=== PATIENT | female | born 1965 | race African-American/Black ===

== ENCOUNTER 2016-09-22 05:17 | Day surgery (SDC) | payer BC, OTHER ==
[2016-09-05 12:28] LABS: HEMOGLOBIN 10.6 g/dL (12.0-15.5); HGB HCT DIFFERENCE -2.2; MEAN CORPUSCULAR HEMOGLOBIN 25.4 pg (27.0-33.4); MEAN CORPUSCULAR HGB CONC 31.3 g/dL (32.0-36.0); MEAN CORPUSCULAR VOLUME 81 fl (80-97); RED BLOOD COUNT 4.18 10^6/uL (3.72-5.28); RED CELL DISTRIBUTION WIDTH 16.5 % (11.5-14.0); WHITE BLOOD COUNT 5.6 10^3/uL (4.0-10.5)
[2016-09-05 12:43] LABS: APPEARANCE,URINE SLIGHTLY-CLOUDY; BILIRUBIN,URINE NEGATIVE (NEGATIVE); GLUCOSE, URINE NEGATIVE (NEGATIVE); KETONES,URINE NEGATIVE (NEGATIVE); LEUKOCYTE ESTERASE,URINE NEGATIVE (NEGATIVE); NITRITE,URINE NEGATIVE (NEGATIVE); PROTEIN,URINE NEGATIVE (NEGATIVE); URINE SPECIFIC GRAVITY 1.024; UROBILINOGEN,URINE NEGATIVE mg/dL (<2.0)
[2016-09-05 12:47] LABS: ANION GAP 11 (5-19); BLOOD UREA NITROGEN 16 mg/dL (7-20); CARBON DIOXIDE 26 mmol/L (22-30); CHLORIDE 105 mmol/L (98-107); GLUCOSE 79 mg/dL (75-110); POTASSIUM 4.5 mmol/L (3.6-5.0); SODIUM 142.3 mmol/L (137-145)
--- NOTE | 2016-09-05 20:06 | EKG REPORT ---
SEVERITY:- NORMAL ECG - SINUS RHYTHM : Confirmed by: Lucio Garcia 05-Sep-2016 20:05:21
[2016-09-20 13:51] LABS: HEMATOCRIT 33.3 % (36.0-47.0); HEMOGLOBIN 10.7 g/dL (12.0-15.5); HGB HCT DIFFERENCE -1.2; MEAN CORPUSCULAR HEMOGLOBIN 25.8 pg (27.0-33.4); MEAN CORPUSCULAR HGB CONC 32.1 g/dL (32.0-36.0); MEAN CORPUSCULAR VOLUME 80 fl (80-97); RED BLOOD COUNT 4.15 10^6/uL (3.72-5.28); RED CELL DISTRIBUTION WIDTH 17.8 % (11.5-14.0); WHITE BLOOD COUNT 5.1 10^3/uL (4.0-10.5)
[2016-09-20 14:19] LABS: ANION GAP 11 (5-19); BLOOD UREA NITROGEN 15 mg/dL (7-20); CALCIUM 9.7 mg/dL (8.4-10.2); CARBON DIOXIDE 24 mmol/L (22-30); CHLORIDE 106 mmol/L (98-107); GLUCOSE 85 mg/dL (75-110); POTASSIUM 4.4 mmol/L (3.6-5.0); SODIUM 140.9 mmol/L (137-145)
[~2016-09-22 05:17] MED LIST: CEFAZOLIN 1 GM/D5W RTU 1 GM/50 ML RTUPB IV PRN; CEFAZOLIN SODIUM 1 GM in DEXTROSE 5%-WATER 50 ML IV PRN; LACTATED RINGERS 1000 ML IV PRN; LIDOCAINE 0.5% INJ-PF (5 MG/ML) 50 ML SDV SUBCUT PRN
[2016-09-22] MEDS ORDERED: FENTANYL CITRATE INJ/PF 250 MCG/5 ML AMPULE ONE (07:06)
[2016-09-22] MEDS ORDERED: EPHEDRINE SULFATE INJ 50 MG/1 ML AMPULE ONE (07:07)
[2016-09-22] MEDS ORDERED: MIDAZOLAM 2 MG/2 ML INJ ONE (07:07)
[2016-09-22] MEDS ORDERED: ONDANSETRON HCL INJ/PF 4 MG/2 ML SDV ONE (07:07)
[2016-09-22] MEDS ORDERED: HYDROMORPHONE HCL INJ/PF 2 MG/ML AMPULE ONE (07:07)
[2016-09-22] MEDS ORDERED: DEXAMETHASONE SOD PHOSPHATE INJ 4 MG/1 ML VIAL ONE (07:07)
[2016-09-22] MEDS ORDERED: PROPOFOL INJ 200 MG/20 ML VIAL IV ONE (07:07)
[2016-09-22] MEDS ORDERED: DIPHENHYDRAMINE HCL 50 MG/ML VIAL IV PRN (07:40)
[2016-09-22] MEDS ORDERED: MEPERIDINE HCL/PF INJ 25 MG/1 ML DISP.SYRIN IV PRN (07:40)
[2016-09-22] MEDS ORDERED: FENTANYL CITRATE INJ/PF 100 MCG/2 ML AMPUL IV PRN ×3 (07:40)
[2016-09-22] MEDS ORDERED: PROMETHAZINE HCL INJ 25 MG/1 ML VIAL IV PRN (07:40)
[2016-09-22] MEDS ORDERED: OXYCODONE-ACETAMINOPHEN 5-325 MG TABLET PO PRN ×2 (08:58→11:00)
[2016-09-22] MEDS ORDERED: MORPHINE SULFATE 10 MG/ML INJ INJ PRN (08:59)
[2016-09-22] MEDS ORDERED: MORPHINE SULFATE 10 MG/ML INJ IM PRN (08:59)
[2016-09-22] MEDS ORDERED: PROMETHAZINE HCL INJ 25 MG/1 ML VIAL IM PRN ×2 (09:00→11:00)
--- NOTE | 2016-09-22 09:03 | OPERATIVE REPORT E ---
Operative Report NAME: JASBIR GUTIÉRREZ : 1965 AGE: 51Y DATE OF SURGERY: 09/22/2016 ROOM: PREOPERATIVE DIAGNOSES: 1. Dysmenorrhea. 2. Menorrhagia. 3. Uterine leiomyoma. 5. Adenomyosis. POSTOPERATIVE DIAGNOSES: 1. Dysmenorrhea. 2. Menorrhagia. 3. Uterine leiomyoma. 5. Adenomyosis. PROCEDURE: Total vaginal hysterectomy. COMPLICATIONS: None. SURGEON: KENDALL THOMAS M.D. ESTIMATED BLOOD LOSS: Qbg-qkwubrk-jflke mL. INDICATIONS FOR PROCEDURE: Patient had symptomatic anemia, iron infusions, painful periods, and clotting despite outpatient treatment with hormones and a Novasure ablation approximately a year to a year and a half ago. Usual risks of bleeding, infection, anesthesia, and damage to organs and tissues have been discussed with the patient and understood. PROCEDURE: Patient taken to the operating room and placed in modified lithotomy position after adequate anesthesia ascertained, and prepped and draped in the usual manner for a vaginal hysterectomy. Exam under anesthesia was performed. A surgical timeout was performed. Bladder had been drained under sterile technique. Antibiotics had been given. Via a posterior culdotomy incision, the posterior cul-de-sac was entered without difficulty. Uterosacral ligaments were crossclamped, cut, suture ligated, and held. Cervix was circumscribed and bladder was advanced sequentially throughout this aspect of the procedure and included a LigaSure advanced cauterization and cutting all the way up to the upper pedicles bilaterally. The upper pedicles were crossclamped, cut, suture ligated, cauterized, and held as well. The tubes and ovaries were identified at this point in the procedure. The uterus and cervix were handed off the operative field and noted to be normal. Ovaries were noted to be normal. The pedicles were examined and noted to be dry. Stephens culdoplasty stitches were placed and held and tied at the completion of the procedure. The vagina was closed in an anteroposterior fashion with good hemostasis noted at the completion of the procedure. Copious irrigation ensued. The vagina was noted to be dry. Good support was noted. No enterocele formation was noted at the closure of the vagina. All sponge, needle, and instrument counts were correct. Patient awakened and taken to recovery room in stable condition. DICTATING PHYSICIAN: KENDALL THOMAS M.D. [id number] PHY#: [id number] ID: [id number] JOB#: [id number] ACCT: [id number] cc:KENDALL THOMAS M.D. >
[2016-09-22] MEDS ORDERED: ACETAMINOPHEN 100 ML IV ONE (09:21)
[2016-09-22] MEDS ORDERED: IBUPROFEN 800 MG TABLET PO SCH (10:00)
[2016-09-22] MEDS ORDERED: RINGERS SOLUTION,LACTATED 500 ML IV ONE (10:00)
[2016-09-22] MEDS: MORPHINE SULFATE 10 MG/ML INJ INJ PRN ×2 (10:14→12:53)
[2016-09-22] MEDS ORDERED: MORPHINE INJ 4 MG DOSE (EDIT ROUTE) INJ PRN (11:00)
[2016-09-22] MEDS ORDERED: MORPHINE INJ 8 MG DOSE IM PRN (11:00)
[2016-09-22] MEDS ORDERED: MORPHINE INJ 6 MG DOSE (EDIT ROUTE) INJ PRN (11:00)
[2016-09-22] MEDS ORDERED: NEOSTIGMINE METHYLSULFATE 10 MG/10 ML VIAL ONE (12:28)
[2016-09-22] MEDS ORDERED: GLYCOPYRROLATE INJ 0.4 MG/2 ML VIAL ONE (12:28)
[2016-09-22] MEDS: IBUPROFEN 800 MG TABLET PO SCH ×2 (14:33→21:46)
[2016-09-22] MEDS ORDERED: INFLUENZA ADLT QUAD (36MOS+) 2016-17 VAC 0.5 ML SYR IM PRN (18:42)
[2016-09-23 06:03] LABS: HEMATOCRIT 31.2 % (36.0-47.0); HEMOGLOBIN 10.1 g/dL (12.0-15.5); HGB HCT DIFFERENCE -0.9; MEAN CORPUSCULAR HGB CONC 32.2 g/dL (32.0-36.0); MEAN CORPUSCULAR VOLUME 81 fl (80-97); RED BLOOD COUNT 3.87 10^6/uL (3.72-5.28); RED CELL DISTRIBUTION WIDTH 17.6 % (11.5-14.0); WHITE BLOOD COUNT 10.2 10^3/uL (4.0-10.5)
[2016-09-23] MEDS: IBUPROFEN 800 MG TABLET PO SCH (06:19)
[2016-09-23 08:17] VITALS: BP 121/63
--- NOTE | 2016-09-23 09:38 | DISCHARGE SUMMARY E ---
Discharge Summary NAME: JASBIR GUTIÉRREZ : 1965 AGE: 51Y ADMITTED: 09/22/2016 DISCHARGED: 09/23/2016 HOSPITAL COURSE: This is a 51-year-old female admitted 09/22/2016 for definitive treatment for symptomatic menorrhagia and anemia. The patient received outpatient iron infusions to get hemoglobin up to adequate operative levels. She was also given Provera for management. The usual risks of bleeding, infection, anesthesia, and damage to organs and tissues were discussed and the patient understood. The patient was admitted 09/22/2016 as an outpatient extended for a total vaginal hysterectomy, which was performed uneventfully. Estimated blood loss approximately 150 mL. Normal tubes and ovaries were noted at the time of procedure. Postoperatively, the patient did well, ambulatory, regular diet, no evidence of DVT, discharged hospital day one doing well. Pathology pending at time of dictation. FINAL DIAGNOSIS: Menorrhagia. PROCEDURE: Total vaginal hysterectomy. DICTATING PHYSICIAN: KENDALL THOMAS M.D. [id number] PHY#: [id number] ID: [id number] JOB#: [id number] ACCT: [id number] cc:KENDALL THOMAS M.D. > MTDD
== END 2016-09-23 09:00 | disposition home or self-care (01) ==
LOC: OROUT 05:17 → 2N 09:46 → OROUT 09-23 09:00
PROVIDERS: ATTEND Specialist
PROC: 0UTC7ZZ Resection of Cervix, Via Natural or Artificial Opening (ICD-10-PCS; 2016-09-22)
PROC: 0UT97ZZ Resection of Uterus, Via Natural or Artificial Opening (ICD-10-PCS; principal; 2016-09-22 07:15)
DX: N94.4 Primary dysmenorrhea (principal); N92.0 Excessive and frequent menstruation with regular cycle; D25.9 Leiomyoma of uterus, unspecified; N87.0 Mild cervical dysplasia; N80.0 Endometriosis of uterus; Z23 Encounter for immunization; E05.90 Thyrotoxicosis, unspecified without thyrotoxic crisis or storm; I10 Essential (primary) hypertension; Z79.899 Other long term (current) drug therapy
CPT/HCPCS: 93005; 86900 ×2; 86901 ×2; 36415 ×3; 86850 ×2; 85027 ×3; 81025; 80048 ×2; 81001; 88307 ×2; 71020; 90686; 94799; 93010; 58260; J2250; J0690 ×2; J1100; J3010; J2270; J1170; J2550; J2405; J7120; J2704; J0131; 944; J3490

== ENCOUNTER → 2017-10-16 | Outpatient (CLI) | payer BC, OTHER ==
--- NOTE | 2017-10-16 09:06 | WOMENS IMAGING REPORT ---
EXAM DESCRIPTION: 3D SCREENING MAMMO BILAT COMPLETED DATE/TIME: 10/16/2017 8:44 am REASON FOR STUDY: SCREENING MAMMO Z12.31 ENCNTR SCREEN MAMMOGRAM FOR MALIGNANT NEOPLASM OF JAYNE COMPARISON: 2015 TECHNIQUE: Standard craniocaudal and mediolateral oblique views of each breast recorded using digita l acquisition and breast tomosynthesis. LIMITATIONS: None. FINDINGS: RIGHT BREAST MASSES: No suspicious masses. CALCIFICATIONS: There are very faint calcifications in the deep right breast 6 o'clock position about 8 cm from the nipple. These require further investigation with compression magnification views in t he CC and 90 mediolateral view, and a right breast 90 mediolateral view ARCHITECTURAL DISTORTION: None. DEVELOPING DENSITY: None. ASYMMETRY: None noted. OTHER: No other significant findings. LEFT BREAST MASSES: No suspicious masses. CALCIFICATIONS: No new or suspicious calcifications. ARCHITECTURAL DISTORTION: None. DEVELOPING DENSITY: None. ASYMMETRY: None noted. OTHER: No other significant findings. Read with the assistance of CAD. .[facility] - R2 Cenova Version 1.3 .[facility] Imaging - R2 Cenova Version 1.3 .[facility] Imaging - R2 Cenova Version 2.4 .[facility] - R2 Cenova Version 2.4 .[facility] - R2 [employer] Machine Operator Helper Version 9.2 IMPRESSION: No mammographic or tomosynthesis evidence for malignancy left breast. Faint calcifications right breast deep 6 o'clock position for which diagnostic magnification mammogra ms are recommended BREAST DENSITY: b. There are scattered areas of fibroglandular density. BIRAD: 0 Incomplete: Needs Additional Imaging Evaluation and/or prior Mammograms for Comparison. RECOMMENDATION: RECOMMENDED FOLLOW-UP: Additional mammograms right breast The patient will be contacted for additional imaging. COMMENT: The patient has been notified of the results by letter per SA requirements. Additional no tification policies are in place for contacting patient with suspicious or incomplete findings. Quality ID #225: The [employer] recommends an annual screening mammogram for women aged 40 years or over. This facility utilizes a reminder system to ensure that all patients receive reminder letters, and/or direct phone calls for appointments. This includes reminders for routine scr eening mammograms, diagnostic mammograms, or other Breast Imaging Interventions when appropriate. Th is patient will be placed in the appropriate reminder system. The [employer] (ACR) has developed recommendations for screening MRI of the breast s in certain patient populations, to be used in conjunction with mammography. Breast MRI surveillanc e may be appropriate for women with more than 20% lifetime risk of developing breast cancer as deter mined by genetic testing, significant family history of the disease, or history of mantle radiation f or Hodgkins Disease. ACR Practice Guidelines 2008. DBT Technology DBT is a type of tomographic mammography. With conventional mammography, overlapping breast tissue ma y make lesions difficult to detect, even with good compression. DBT uses an x-ray tube that rotates a round the breast, taking images at different angles. These images are then combined to create thin sl ices of the breast that the radiologist can view as a 3D reconstruction. The TruQu unit can perform full-field digital mammograms (2D imaging); or DBT (3D imaging); or both, in a combination mode that quickly performs both the mammogram and the tomosynthesis scan while the breast is still compressed. PQRS 6045F: Fluoroscopic imaging is not utilized for breast tomosynthesis. TECHNICAL DOCUMENTATION: FINDING NUMBER: (1) ASSESSMENT: (1) JOB ID: [id number] [employer]- All Rights Reserved Reading location - IP/workstation name: [facility]
== END ==
LOC: WI 08:09
PROVIDERS: ATTEND Physician Assistant
DX: Z12.31 Encounter for screening mammogram for malignant neoplasm of breast (principal); R92.0 Mammographic microcalcification found on diagnostic imaging of breast
CPT/HCPCS: 77063; 77067

== ENCOUNTER → 2017-10-20 | Outpatient (CLI) | payer BC, OTHER ==
--- NOTE | 2017-10-20 09:28 | WOMENS IMAGING REPORT ---
EXAM DESCRIPTION: RIGHT DIAGNOSTIC MAMMO W/CAD COMPLETED DATE/TIME: 10/20/2017 9:12 am REASON FOR STUDY: CALCIFICATIONS; R92.0 R92.0 MAMMOGRAPHIC MICROCALCIFICATION FOUND ON DX IMAGING O F COMPARISON: 10/16/2017 TECHNIQUE: Magnification views of the right breast were obtained in 2 projections as well as a true lateral view and repeat CC view of the right breast. LIMITATIONS: None. FINDINGS: BREAST: Right MASSES: No suspicious masses. CALCIFICATIONS: The previously described faint calcifications in the right breast are well visualized on the additional views obtained. The calcifications are somewhat 8 amorphic in appearance and I wo uld recommend consideration for biopsy. ARCHITECTURAL DISTORTION: None. DEVELOPING DENSITY: None. ASYMMETRY: None noted. OTHER: No other significant findings. IMPRESSION: Suspicious calcifications in the right breast BREAST DENSITY: b. There are scattered areas of fibroglandular density. BIRAD: 4 Suspicious. Biopsy should be considered. RECOMMENDATION: RECOMMENDED FOLLOW UP: Recommend consideration for biopsy. SPECIFIC INTERVENTION/IMAGING/CONSULTATION RECOMMENDED:The suspicious finding(s) amenable to stereo-t actic-guided vacuum assisted core biopsy. COMMUNICATION:The imaging findings were not discussed with the patient. Her referring provider has be en notified of the findings. COMMENT: The patient has been notified of the results by letter per SA requirements. Additional no tification policies are in place for contacting patient with suspicious or incomplete findings. Quality ID #225: The [employer] recommends an annual screening mammogram for women aged 40 years or over. This facility utilizes a reminder system to ensure that all patients receive reminder letters, and/or direct phone calls for appointments. This includes reminders for routine scr eening mammograms, diagnostic mammograms, or other Breast Imaging Interventions when appropriate. Th is patient will be placed in the appropriate reminder system. The [employer] (ACR) has developed recommendations for screening MRI of the breast s in certain patient populations, to be used in conjunction with mammography. Breast MRI surveillanc e may be appropriate for women with more than 20% lifetime risk of developing breast cancer as deter mined by genetic testing, significant family history of the disease, or history of mantle radiation f or Hodgkins Disease. ACR Practice Guidelines 2008. TECHNICAL DOCUMENTATION: FINDING NUMBER: (1) ASSESSMENT: (1) JOB ID: [id number] [employer]- All Rights Reserved Reading location - IP/workstation name: [facility]
== END ==
LOC: WI 09:08
PROVIDERS: ATTEND Physician Assistant
DX: R92.0 Mammographic microcalcification found on diagnostic imaging of breast (principal)

== ENCOUNTER → 2017-10-30 | Day surgery (SDC) | payer BC, OTHER ==
[~2017-10-30] MED LIST changes: -CEFAZOLIN 1 GM/D5W RTU 1 GM/50 ML RTUPB IV PRN; -CEFAZOLIN SODIUM 1 GM in DEXTROSE 5%-WATER 50 ML IV PRN; -LACTATED RINGERS 1000 ML IV PRN; -LIDOCAINE 0.5% INJ-PF (5 MG/ML) 50 ML SDV SUBCUT PRN; +LIDOCAINE 1%/EPINEPHRINE INJ 20 ML VIAL ONE
--- NOTE | 2017-11-07 16:52 | WOMENS IMAGING REPORT ---
EXAM DESCRIPTION: STEREO BREAST BX; BREAST SPECIMEN; RIGHT DIG DX MAMMO NO CHG COMPLETED DATE/TIME: 10/30/2017 2:23 pm; 11/01/2017 9:43 am; 10/30/2017 2:20 pm REASON FOR STUDY: R92.1 MAMMOGRAPHIC CALCIFCN FOUND ON DIAGNOSTIC IMAGING OF BREAST; RT BREAST; POST STEREO R92.1 MAMMOGRAPHIC CALCIFCN FOUND ON DIAGNOSTIC IMAGING OF B COMPARISON: Multiple since 11/03/2015 TECHNIQUE: Vacuum-assisted stereotactic-guided biopsy of the lesion in the right breast. Serial prog ress stereotactic and single digital images acquired. PROCEDURE: The procedure was discussed with the patient, including possible complications such as bleeding, infection, nondiagnostic sample or possible findings such as atypical ductal hyperplasia wh ich would require additional surgery. Possible clip placement was explained. The patient agreed t o the procedure. The patient was placed prone on the stereotactic table. The lesion in the breast was localized ster eotactically. The skin of the breast was prepped in sterile fashion. Superficial and deep local an esthesia was provided. A small incision was made in the skin and the biopsy probe was advanced to t he target. Using the vacuum-assisted core biopsy device, multiple core specimens were obtained. Continuous low dose infusion of local anesthesia was used during the procedure. A specimen radiograph was obtained. The radiograph demonstrated calcifications of concern in the bio psy tissue. Using eyitfqeu-lc-jhknrkqv technique a pellet clip was deployed at the biopsy site. Mammographic image confirmed presence of the clip. The probe was then removed and hemostasis obtained with manua l compression. A compression bandage was applied. Postoperative instructions were explained to th e patient. POST-PROCEDURE TWO VIEW DIGITAL MAMMOGRAM: An additional two view mammogram was recorded in the [facility]. Marker clip is present at the biopsy site. LIMITATIONS: None. FINDINGS: PATHOLOGY: Benign breast tissue. Negative for atypia or malignancy. No microcalcificatio ns were seen under the microscope CONCORDANT: Yes. POST PROCEDURE MAMMOGRAMS FOR MARKER PLACEMENT: Yes IMPRESSION: SUCCESSFUL STEREOTACTIC-GUIDED BIOPSY OF THE LESION IN THE RIGHT BREAST. BIOPSY RESULT S ARE LIKELY CONCORDANT WITH IMAGING FINDINGS. ORIGINAL MICROCALCIFICATIONS ON DIAGNOSTIC MAMMOGRAMS 10/20/2017 APPEAR TO BE SMUDGY [id number] ON THE 90 MEDIOLATERAL VIEW. THESE MAY HAVE WASHED EDGAR Y DURING TISSUE PROCESSING BI-RADS 2, benign biopsy. FOLLOW-UP: Please return for six-month follow-up right breast diagnostic mammograms NOTIFICATION: THESE RESULTS WERE DISCUSSED WITH THE PATIENT, 11/02/2017. SHE UNDERSTANDS SHE WILL RET URN FOR SIX-MONTH FOLLOW-UP MAMMOGRAMS COMMENT: Patient medication list reviewed: Yes- Quality ID# [id number]:Eligible professional attests to doc umenting in the medical record they obtained, updated, or reviewed the patient's current medications. TECHNICAL DOCUMENTATION: JOB ID: [id number] [employer]- All Rights Reserved Reading location - IP/workstation name: [facility]
--- NOTE | 2017-11-07 16:52 | WOMENS IMAGING REPORT ---
EXAM DESCRIPTION: STEREO BREAST BX; BREAST SPECIMEN; RIGHT DIG DX MAMMO NO CHG COMPLETED DATE/TIME: 10/30/2017 2:23 pm; 11/01/2017 9:43 am; 10/30/2017 2:20 pm REASON FOR STUDY: R92.1 MAMMOGRAPHIC CALCIFCN FOUND ON DIAGNOSTIC IMAGING OF BREAST; RT BREAST; POST STEREO R92.1 MAMMOGRAPHIC CALCIFCN FOUND ON DIAGNOSTIC IMAGING OF B COMPARISON: Multiple since 11/03/2015 TECHNIQUE: Vacuum-assisted stereotactic-guided biopsy of the lesion in the right breast. Serial prog ress stereotactic and single digital images acquired. PROCEDURE: The procedure was discussed with the patient, including possible complications such as bleeding, infection, nondiagnostic sample or possible findings such as atypical ductal hyperplasia wh ich would require additional surgery. Possible clip placement was explained. The patient agreed t o the procedure. The patient was placed prone on the stereotactic table. The lesion in the breast was localized ster eotactically. The skin of the breast was prepped in sterile fashion. Superficial and deep local an esthesia was provided. A small incision was made in the skin and the biopsy probe was advanced to t he target. Using the vacuum-assisted core biopsy device, multiple core specimens were obtained. Continuous low dose infusion of local anesthesia was used during the procedure. A specimen radiograph was obtained. The radiograph demonstrated calcifications of concern in the bio psy tissue. Using zxxrjflj-jj-ijlboelf technique a pellet clip was deployed at the biopsy site. Mammographic image confirmed presence of the clip. The probe was then removed and hemostasis obtained with manua l compression. A compression bandage was applied. Postoperative instructions were explained to th e patient. POST-PROCEDURE TWO VIEW DIGITAL MAMMOGRAM: An additional two view mammogram was recorded in the [facility]. Marker clip is present at the biopsy site. LIMITATIONS: None. FINDINGS: PATHOLOGY: Benign breast tissue. Negative for atypia or malignancy. No microcalcificatio ns were seen under the microscope CONCORDANT: Yes. POST PROCEDURE MAMMOGRAMS FOR MARKER PLACEMENT: Yes IMPRESSION: SUCCESSFUL STEREOTACTIC-GUIDED BIOPSY OF THE LESION IN THE RIGHT BREAST. BIOPSY RESULT S ARE LIKELY CONCORDANT WITH IMAGING FINDINGS. ORIGINAL MICROCALCIFICATIONS ON DIAGNOSTIC MAMMOGRAMS 10/20/2017 APPEAR TO BE SMUDGY [id number] ON THE 90 MEDIOLATERAL VIEW. THESE MAY HAVE WASHED EDGAR Y DURING TISSUE PROCESSING BI-RADS 2, benign biopsy. FOLLOW-UP: Please return for six-month follow-up right breast diagnostic mammograms NOTIFICATION: THESE RESULTS WERE DISCUSSED WITH THE PATIENT, 11/02/2017. SHE UNDERSTANDS SHE WILL RET URN FOR SIX-MONTH FOLLOW-UP MAMMOGRAMS COMMENT: Patient medication list reviewed: Yes- Quality ID# [id number]:Eligible professional attests to doc umenting in the medical record they obtained, updated, or reviewed the patient's current medications. TECHNICAL DOCUMENTATION: JOB ID: [id number] [employer]- All Rights Reserved Reading location - IP/workstation name: [facility]
== END ==
LOC: RAD 11:55
PROVIDERS: ATTEND Physician Assistant
DX: R92.1 Mammographic calcification found on diagnostic imaging of breast (principal)
CPT/HCPCS: 88305 ×2; 19081; J3490

== ENCOUNTER → 2018-10-22 | Outpatient (CLI) | payer BC, OTHER ==
--- NOTE | 2018-10-22 15:37 | WOMENS IMAGING REPORT ---
EXAM DESCRIPTION: BILAT SCREENING MAMMO W/CAD COMPLETED DATE/TIME: 10/22/2018 8:40 am REASON FOR STUDY: Z12.31 ROUTINE BILATERAL SCREENING Z12.31 ENCNTR SCREEN MAMMOGRAM FOR MALIGNANT N EOPLASM OF JAYNE COMPARISON: Multiple since 2016 TECHNIQUE: Standard craniocaudal and mediolateral oblique views of each breast recorded using [employer] l acquisition. LIMITATIONS: None. FINDINGS: Findings present which are benign by mammographic criteria. No suspicious masses, calcifi cations or architectural distortion. Pertinent benign findings: Stereotactic clip deep central right breast. Read with the assistance of CAD. .[facility] - R2 Cenova Version 1.3 .[facility] Imaging - R2 Cenova Version 2.1 .[facility] - R2 Cenova Version 2.4 .[facility] - R2 Cenova Version 2.4 .[facility] - R2 [employer] Methods Specialist Version 9.2 Benign mammographic findings may include one or more of the following: Smooth masses, popcorn/rim/co arse calcifications, asymmetries, post-procedure changes, and lesions with long-standing stability. IMPRESSION: BENIGN MAMMOGRAPHIC FINDINGS. BIRADS 2 BREAST DENSITY: b. There are scattered areas of fibroglandular density. BIRAD: 2 BENIGN FINDING(S) RECOMMENDATION: ROUTINE SCREENING COMMENT: The patient has been notified of the results by letter per SA requirements. Additional no tification policies are in place for contacting patient with suspicious or incomplete findings. Quality ID #225: The [employer] recommends an annual screening mammogram for women aged 40 years or over. This facility utilizes a reminder system to ensure that all patients receive reminder letters, and/or direct phone calls for appointments. This includes reminders for routine scr eening mammograms, diagnostic mammograms, or other Breast Imaging Interventions when appropriate. Th is patient will be placed in the appropriate reminder system. The [employer] (ACR) has developed recommendations for screening MRI of the breast s in certain patient populations, to be used in conjunction with mammography. Breast MRI surveillanc e may be appropriate for women with more than 20% lifetime risk of developing breast cancer as deter mined by genetic testing, significant family history of the disease, or history of mantle radiation f or Hodgkins Disease. ACR Practice Guidelines 2008. TECHNICAL DOCUMENTATION: FINDING NUMBER: (1) ASSESSMENT: (1) JOB ID: [id number] [employer]- All Rights Reserved Reading location - IP/workstation name: [email or web address]
== END ==
LOC: RAD 08:13
PROVIDERS: ATTEND Physician Assistant
DX: Z12.31 Encounter for screening mammogram for malignant neoplasm of breast (principal)
CPT/HCPCS: 77067

== ENCOUNTER → 2019-12-18 | Outpatient (CLI) | payer OTHER ==
--- NOTE | 2019-12-18 13:25 | WOMENS IMAGING REPORT ---
EXAM DESCRIPTION: BILAT SCREENING MAMMO W/CAD IMAGES COMPLETED DATE/TIME: 12/18/2019 9:47 am REASON FOR STUDY: Z12.31 SCREENING MAMMO Z12.31 ENCNTR SCREEN MAMMOGRAM FOR MALIGNANT NEOPLASM OF B RE COMPARISON: 2017, 2018 EXAM PARAMETERS: Standard craniocaudal and mediolateral oblique views of each breast recorded using digital acquisition. Read with the assistance of CAD. .[facility] - [employer] Operator Version 9.2 LIMITATIONS: None. FINDINGS: No suspicious masses, suspicious calcifications or architectural distortion. No areas of c oncern. IMPRESSION: NEGATIVE MAMMOGRAM. BIRADS 1 BREAST DENSITY: b. There are scattered areas of fibroglandular density. BIRAD: ASSESSMENT: 1 NEGATIVE RECOMMENDATION: ROUTINE SCREENING COMMENT: The patient has been notified of the results by letter per MQSA requirements. Additional no tification policies are in place for contacting patient with suspicious or incomplete findings. Quality ID #225: The [employer] recommends an annual screening mammogram for women aged 40 years or over. This facility utilizes a reminder system to ensure that all patients receive reminder letters, and/or direct phone calls for appointments. This includes reminders for routine scr eening mammograms, diagnostic mammograms, or other Breast Imaging Interventions when appropriate. Th is patient will be placed in the appropriate reminder system. TECHNICAL DOCUMENTATION: FINDING NUMBER: (1) ASSESSMENT: (1) JOB ID: [id number] 2010 [employer]- All Rights Reserved Reading location - IP/workstation name: [email or web address]
== END ==
LOC: WI 09:30
PROVIDERS: ATTEND Physician Assistant
DX: Z12.31 Encounter for screening mammogram for malignant neoplasm of breast (principal)
CPT/HCPCS: 77067